=== PATIENT | female | born 1955 | race Caucasian/White ===

== ENCOUNTER → 2017-02-23 | Outpatient (REF) ==
[~2017-02-23] MED LIST: ALEVE 220MG220 MG PO; ASPIRIN 81M81 MG/TA2 PO; CALCIUM + D 6001 TA1 PO; LIPITOR20 MG PO; MULTIPLE VITAMI1 TAB PO; PRILOTC PO; TOPROL XL 50MG50 MG PO; TYLENOL 325MG325 MG PO; ZESTRIL2.5 MG PO; ZOCOR 20MG20 MG PO
== END ==
LOC: WSOH 16:10
DX: Z02.89 Encounter for other administrative examinations (principal)

== ENCOUNTER 2020-04-04 10:32 | Day surgery (SDC) | payer OTHER ==
[~2020-04-04] VITALS: Ht 172.7 cm; Wt 151.9 kg
[2020-04-04] VITALS (9 sets, daily range): BP systolic 92–117; BP diastolic 56–91; PULSE 67–124; TEMP 97.7
[2020-04-04] MEDS ORDERED: ALEVE 220MG220 MG PO (11:05)
[2020-04-04] MEDS ORDERED: CENTRUM SILVER1 TAB PO (11:05)
[2020-04-04] MEDS ORDERED: ZOCOR 20MG20 MG PO (11:05)
[2020-04-04] MEDS ORDERED: PRILOSEC 20MG20 MG PO (11:05)
[2020-04-04] MEDS ORDERED: CALCIUM 600/VIT1 CA1 PO (11:06)
[2020-04-04] MEDS ORDERED: ZESTRIL2.5 MG PO (11:06)
[2020-04-04] MEDS ORDERED: ASPIRIN E.C. 8181 MG PO (11:06)
[2020-04-04] MEDS ORDERED: TOPROL XL 50MG50 MG PO (11:07)
[2020-04-04 11:28] LABS: BASO # 0.1 (0.0-0.2); BASO % 0.9 % (0.0-2.0); EOS # 0.2 (0.0-0.7); EOS % 1.8 % (0-4.0); GRAN # 5.2 (1.4-6.5); GRAN % 63.2 % (42.2-75.2); HEMOGLOBIN 16.2 g/dl (12.5-16.0); LYMPH # 2.2 (1.2-3.4); LYMPH % 26.8 % (20.0-51.0); MEAN CELL VOLUME 93 fl (80.0-100.0); MEAN CORPUSCULAR HEMOGLOBIN 31 pg (27.0-31.0); MEAN CORPUSCULAR HGB CONC 33 g/dl (33.0-37.0); MEAN PLATELET VOLUME 12.8 fl (7.4-10.4); MONO # 0.6 (0.1-0.6); MONO % 7.1 % (1.7-9.3); PLATELET COUNT 255 K/mm3 (130-400); RED BLOOD COUNT 5.26 M/mm3 (4.10-5.30); REDCELL DISTRIBUTION WIDTH-CV 12.9 % (11.5-14.5)
[2020-04-04] MEDS ORDERED: XARELTO20 MG PO (11:32)
[2020-04-04 12:18] LABS: CALCIUM 9.6 mg/dL (8.4-10.2); CREATININE, serum 1.08 (0.52-1.25); POTASSIUM 4.8 mmol/L (3.4-5.0)
--- NOTE | 2020-04-04 14:35 | NUR ---
Pt has rested comfortably following cardiversion without complaint. She is able to transfer throughout room without difficulty. DC instructions have been reviewed and pt expressed understanding. IV was DC'd with catheter intact, and bleeding controlled at site. Pt assisted out by wheelchair, her friend will drive her home.
== END 2020-04-04 14:35 | disposition home or self-care (01) ==
LOC: COL.RAD 10:32
DX: I48.3 Typical atrial flutter (principal); I34.0 Nonrheumatic mitral (valve) insufficiency; Q21.1 Atrial septal defect; I42.0 Dilated cardiomyopathy; I10 Essential (primary) hypertension; E78.5 Hyperlipidemia, unspecified; M25.50 Pain in unspecified joint; Z79.82 Long term (current) use of aspirin; Z79.899 Other long term (current) drug therapy; K21.9 Gastro-esophageal reflux disease without esophagitis
CPT/HCPCS: J2704

== ENCOUNTER 2020-10-28 09:10 | Outpatient (CLI) | payer OTHER ==
[~2020-10-28] VITALS: Ht 172.7 cm; Wt 148.2 kg
[~2020-10-28 09:10] MED LIST changes: +ASPIRIN E.C. 8181 MG PO; +CALCIUM 600/VIT1 CA1 PO; +CENTRUM SILVER1 TAB PO; +PRILOSEC 20MG20 MG PO; +XARELTO20 MG PO
[2020-10-28] MEDS ORDERED: TYLENOL 500MG500 MG PO (09:20)
[2020-10-28] MEDS ORDERED: ASPIRIN E.C. 8181 MG PO (09:22)
[2020-10-28 09:24] VITALS: BP 124/99; PULSE 130
[2020-10-28 09:40] LABS: HEMOGLOBIN 15.6 g/dl (12.5-16.0); MEAN CELL VOLUME 91 fl (80.0-100.0); MEAN CORPUSCULAR HEMOGLOBIN 30 pg (27.0-31.0); MEAN CORPUSCULAR HGB CONC 33 g/dl (33.0-37.0); MEAN PLATELET VOLUME 12.9 fl (7.4-10.4); PLATELET COUNT 189 K/mm3 (130-400); RED BLOOD COUNT 5.14 M/mm3 (4.10-5.30); REDCELL DISTRIBUTION WIDTH-CV 13.6 % (11.5-14.5)
[2020-10-28 09:57] LABS: PROTHROMBIN TIME 10.5 SECONDS (9.7-12.8)
[2020-10-28 09:58] LABS: CALCIUM 8.8 mg/dL (8.4-10.2); CREATININE, serum 0.96 (0.52-1.25); MAGNESIUM 1.8 mg/dL (1.6-2.3); POTASSIUM 4.4 mmol/L (3.4-5.0)
[2020-10-28 09:59] LABS: PARTIAL THROMBOPLASTIN TIME 34.4 SECONDS (26.0-37.0)
[2020-10-28] MEDS ORDERED: MULTAQ400 MG PO (10:13)
[2020-10-28 10:29] LABS: THYROID STIMULATING HORMONE 2.66 uIU/mL (0.465-4.680)
[2020-10-28 10:30] VITALS: BP 108/68; PULSE 72
[2020-10-28 10:45] VITALS: BP 103/38; PULSE 75
[2020-10-28 11:00] VITALS: BP 118/66; PULSE 71
[2020-10-28 11:15] VITALS: BP 114/67; PULSE 70
[2020-10-28 11:30] VITALS: BP 115/60; PULSE 70
--- NOTE | 2020-10-28 12:04 | NUR ---
DC instructions reviewed, pt expresses understanding. She has tolerated sips of water without issue. Gait steady. IV DC'd with catheter intact. She was assisted out by wheelchair to friend's car. She will vegetable picker voucher from Cardiology office tomorrow morning for new rx coverage.
--- NOTE | 2020-10-28 12:13 | NUR ---
Pt was aware of blood glucose level, and will follow up with PCP as instructed by Dr. Godoy.
== END 2020-10-28 12:07 | disposition home or self-care (01) ==
LOC: EUO 09:10
PROVIDERS: Internal Medicine Cardiovascular Disease
DX: I48.0 Paroxysmal atrial fibrillation (principal)
CPT/HCPCS: J2704; J7030

== ENCOUNTER → 2020-10-31 | Outpatient (CLI) | payer OTHER ==
[~2020-10-31] MED LIST changes: +MULTAQ400 MG PO; +TYLENOL 500MG500 MG PO
[2020-10-31 08:05] LABS: BASO # 0.1 (0.0-0.2); BASO % 1.1 % (0.0-2.0); EOS # 0.3 (0.0-0.7); EOS % 4.5 % (0-4.0); GRAN # 2.4 (1.4-6.5); GRAN % 43.6 % (42.2-75.2); HEMATOCRIT 44.6 % (37.0-47.0); HEMOGLOBIN 14.6 g/dl (12.5-16.0); LYMPH # 2.3 (1.2-3.4); LYMPH % 42.2 % (20.0-51.0); MEAN CELL VOLUME 93 fl (80.0-100.0); MEAN CORPUSCULAR HEMOGLOBIN 31 pg (27.0-31.0); MEAN CORPUSCULAR HGB CONC 33 g/dl (33.0-37.0); MEAN PLATELET VOLUME 12.6 fl (7.4-10.4); MONO # 0.5 (0.1-0.6); MONO % 8.2 % (1.7-9.3); PLATELET COUNT 190 K/mm3 (130-400); RED BLOOD COUNT 4.79 M/mm3 (4.10-5.30); REDCELL DISTRIBUTION WIDTH-CV 13.9 % (11.5-14.5)
[2020-10-31 08:16] LABS: BILIRUBIN,TOTAL 0.3 mg/dL (0.0-1.0); CALCIUM 9.1 mg/dL (8.4-10.2); CHOLESTEROL RISK RATIO 3.5; CREATININE, serum 0.9 (0.52-1.25); POTASSIUM 4.4 mmol/L (3.4-5.0); TOTAL PROTEIN 7.4 gm/dL (6.4-8.2)
[2020-10-31 09:00] LABS: MUCOUS Present /lpf; PH 5 (5-8); URINE APPEARANCE Hazy; URINE BACTERIA None Seen /hpf; URINE BILIRUBIN Negative (NEGATIVE); URINE BLOOD 1+ (NEGATIVE); URINE COLOR Yellow; URINE GLUCOSE 3+ (NEGATIVE); URINE KETONE 1+ (NEGATIVE); URINE LEUKOCYTE ESTERASE 2+ (NEGATIVE); URINE NITRATE Negative (NEGATIVE); URINE PROTEIN(semi-quant) Negative (NEGATIVE); URINE UROBILINOGEN Negative (NEGATIVE)
[2020-10-31 09:05] LABS: COLLECTION METHOD CLEAN CATCH
== END ==
LOC: COL.LAB 07:15
PROVIDERS: Family Medicine
DX: Z13.220 Encounter for screening for lipoid disorders (principal); Z13.29 Encounter for screening for other suspected endocrine disorder; Z00.00 Encounter for general adult medical examination without abnormal findings; R73.01 Impaired fasting glucose

== ENCOUNTER → 2020-12-31 | Outpatient (CLI) | payer OTHER | LOC: COL.VAS 07:33 | DX: I48.92 Unspecified atrial flutter (principal) ==

== ENCOUNTER → 2021-02-04 | Outpatient (CLI) | payer OTHER | LOC: COL.LAB 02-03 10:19 | DX: E11.59 Type 2 diabetes mellitus with other circulatory complications (principal) ==

== ENCOUNTER → 2021-07-09 | Outpatient (CLI) | payer OTHER | LOC: COL.LAB 09:07 | DX: E11.59 Type 2 diabetes mellitus with other circulatory complications (principal) ==

== ENCOUNTER → 2021-10-09 | Outpatient (CLI) | payer OTHER ==
[2021-10-09 08:22] LABS: BASO # 0.1 K/mm3 (0.0-0.2); BASO % 1.2 % (0.0-2.0); COLLECTION METHOD CLEAN CATCH; EOS # 0.2 K/mm3 (0.0-0.7); EOS % 3.8 % (0.0-4.0); GRAN # 2.4 K/mm3 (1.4-6.5); GRAN % 40.4 % (42.2-75.2); HEMATOCRIT 43.4 % (37.0-47.0); HEMOGLOBIN 14.5 g/dl (12.5-16.0); LYMPH # 2.7 K/mm3 (1.2-3.4); LYMPH % 44.4 % (20.0-51.0); MEAN CELL VOLUME 90 fl (80.0-100.0); MEAN CORPUSCULAR HEMOGLOBIN 30 pg (27-31); MEAN CORPUSCULAR HGB CONC 33 g/dl (33.0-37.0); MEAN PLATELET VOLUME 12.4 fl (7.4-10.4); MONO # 0.6 K/mm3 (0.1-0.6); PLATELET COUNT 201 K/mm3 (130-400); REDCELL DISTRIBUTION WIDTH-CV 13.6 % (11.5-14.5)
[2021-10-09 08:33] LABS: MUCOUS Present (NOT PRESENT); PH 5 (5-8); URINE APPEARANCE Cloudy (CLEAR/HAZY); URINE BACTERIA Rare /hpf (NONE SEEN); URINE BILIRUBIN Negative (NEGATIVE); URINE BLOOD 1+ (NEGATIVE); URINE COLOR Yellow (YELLOW); URINE GLUCOSE Negative (NEGATIVE); URINE KETONE Negative (NEGATIVE); URINE LEUKOCYTE ESTERASE 3+ (NEGATIVE); URINE NITRATE Negative (NEGATIVE); URINE PROTEIN(semi-quant) Negative (NEGATIVE); URINE UROBILINOGEN Negative (NEGATIVE); URINE WBC 20-50 /hpf (0-2)
[2021-10-09 08:44] LABS: ALBUMIN 3.4 gm/dL (3.4-4.8); BILIRUBIN,TOTAL 0.5 mg/dL (0.2-1.2); CALCIUM 9.1 mg/dL (8.4-10.2); CHOLESTEROL RISK RATIO 2.6; POTASSIUM 4.3 mmol/L (3.5-4.5); TOTAL PROTEIN 7.1 gm/dL (6.2-8.1)
[2021-10-09 08:57] LABS: THYROID STIMULATING HORMONE 3.68 uIU/mL (0.350-4.940)
== END ==
LOC: COL.LAB 07:42
PROVIDERS: Family Medicine
DX: Z00.00 Encounter for general adult medical examination without abnormal findings (principal); Z13.29 Encounter for screening for other suspected endocrine disorder; Z13.220 Encounter for screening for lipoid disorders; Z11.59 Encounter for screening for other viral diseases; E11.65 Type 2 diabetes mellitus with hyperglycemia